=== PATIENT | male | born 1955 | race Caucasian/White ===

== ENCOUNTER 2018-05-25 17:28 | Emergency (ER) | payer OTHER ==
[2018-05-25] MEDS: IBUPROFEN 800 MG TAB PO (18:24)
== END 2018-05-25 20:00 | disposition home or self-care (01) ==
LOC: E/R 17:28
DX: S43.101A Unspecified dislocation of right acromioclavicular joint, initial encounter (principal); E11.9 Type 2 diabetes mellitus without complications; W18.39XA Other fall on same level, initial encounter; Y92.9 Unspecified place or not applicable
CPT/HCPCS: 29105; 73030-RT; 99283-25

== ENCOUNTER 2018-07-03 04:09 | Inpatient (IN) | payer OTHER ==
[2018-07-03 05:43] LABS: ADD MAN DIFF? NO
[2018-07-03 05:48] LABS: ADD UMIC NO; UR ASCORBIC ACID NEGATIVE (NEGATIVE); UR BILIRUBIN (Dip) NEGATIVE (NEGATIVE); UR BLOOD (Dip) NEGATIVE (NEGATIVE); UR CLARITY CLEAR (CLEAR); UR COLOR YELLOW (YELLOW); UR GLUCOSE (Dip) NEGATIVE (NEGATIVE); UR KETONES (Dip) NEGATIVE (NEGATIVE); UR LEUKOCYTE ESTERASE (Dip) NEGATIVE Leu/ul (NEGATIVE); UR NITRITE (Dip) NEGATIVE (NEGATIVE); UR SPECIFIC GRAVITY (Dip) 1.024 (1.003-1.030); UR TOTAL PROTEIN (Dip) NEGATIVE (NEGATIVE); UR UROBILINOGEN (Dip) NEGATIVE (NEGATIVE)
[2018-07-03 05:49] LABS: BASOPHILS % 0.7 % (0.0-2.0); EOSINOPHILS % 0.5 % (0.0-7.0); HEMOGLOBIN 13.7 g/dl (14.0-18.0); LYMPHOCYTES % 17.7 % (15.0-51.0); MEAN CORPUSCULAR HEMOGLOBIN 27.6 pg (29.0-33.0); MEAN CORPUSCULAR HGB CONC 32.6 g/dl (32.0-37.0); MEAN CORPUSCULAR VOLUME 84.7 fl (82.0-101.0); MEAN PLATELET VOLUME 10.3 fl (7.4-10.4); MONOCYTE # 0.3 10^3/ul (0.3-0.9); MONOCYTES % 5.3 % (0.0-11.0); NEUTROPHIL # 4.3 10^3/ul (1.6-7.5); NEUTROPHILS % 75.1 % (39.0-77.0); PLATELET COUNT 214 10^3/UL (140-415); RED BLOOD COUNT 4.96 10^6/ul (4.70-6.10); RED CELL DISTRIBUTION WIDTH 13.8 % (11.5-14.5)
[2018-07-03 05:49] LABS: WHITE BLOOD COUNT 5.7 10^3/ul (4.8-10.8)
[2018-07-03 06:11] LABS: ALANINE AMINOTRANSFERASE 40 IU/L (13-69); ALBUMIN 4.3 g/dl (3.3-4.9); ALBUMIN/GLOBULIN RATIO 1.34; ALKALINE PHOSPHATASE 54 IU/L (42-121); ANION GAP 12 (5-13); ASPARTATE AMINO TRANSFERASE 25 IU/L (15-46); BILIRUBIN,INDIRECT 0.2 mg/dl (0-1.1); BILIRUBIN,TOTAL 0.2 mg/dl (0.2-1.3); BLOOD UREA NITROGEN 16 mg/dl (7-20); CALCIUM 9.3 mg/dl (8.4-10.2); CARBON DIOXIDE 27 mmol/L (21-31); CHLORIDE 100 mmol/L (97-110); CREATININE 0.96 mg/dl (0.61-1.24); Estimated GFR > 60 mL/min (>60); GLUCOSE 140 mg/dl (70-220); LIPASE 94 U/L (23-300); POTASSIUM 3.7 mmol/L (3.5-5.1); SODIUM 139 mmol/L (135-144); TOTAL PROTEIN 7.5 g/dl (6.1-8.1)
[2018-07-03] MEDS: LIDOCAINE/MYLANTA 40 ML BTL PO (07:05)
[2018-07-03] MEDS: SOD CHLORIDE 0.9% 1,000 ML IV (07:06)
[2018-07-03] MEDS: ONDANSETRON 4 MG INJ IV ×2 (07:06→13:27)
[2018-07-03] MEDS: FAMOTIDINE 20 MG INJ IV (07:06)
[2018-07-03] MEDS: morphine 4 MG/ML VIAL IV (08:47)
[2018-07-03] MEDS: PIPER-TAZO 3.375 GM IV (PMX) 100 ML IVPB ×3 (08:47→23:03)
[2018-07-03] MEDS ORDERED: ACETAMINOPHEN 325 MG TAB PO (09:30)
[2018-07-03] MEDS ORDERED: NACL 0.9% 3 ML SYG IV (10:30)
[2018-07-03] MEDS ORDERED: ONDANSETRON 4 MG INJ IV ×3 (10:30→22:00)
[2018-07-03] MEDS: DEXTROSE 5%-0.45% NACL 1,000 ML IV (10:37)
[2018-07-03] MEDS: morphine 2 MG INJ IV ×2 (13:27→16:51)
[2018-07-03] MEDS ORDERED: LIDOCAINE 2% (SDV) 5 ML INJ (20:00)
[2018-07-03] MEDS ORDERED: DESFLURANE 15 MIN (20:00)
[2018-07-03] MEDS ORDERED: FENTAnyl 50 MCG/ML VIAL (20:17)
[2018-07-03] MEDS ORDERED: ROCURONIUM 50 MG INJ (20:17)
[2018-07-03] MEDS ORDERED: PROPOFOL 20 ML (20:17)
[2018-07-03] MEDS ORDERED: CEFAZOLIN 1 GM INJ (20:17)
[2018-07-03] MEDS ORDERED: NEOSTIGMINE 3 MG/3 ML SYRINGE (20:17)
[2018-07-03] MEDS ORDERED: GLYCOPYRROLATE 0.4 MG INJ (20:17)
[2018-07-03] MEDS ORDERED: DEXAMETHASONE 4 MG/ML 5 ML INJ (20:17)
[2018-07-03] MEDS ORDERED: ONDANSETRON 4 MG INJ (20:17)
[2018-07-03] MEDS ORDERED: MIDAZOLAM 1 MG/ML 2 ML INJ (20:17)
[2018-07-03] MEDS ORDERED: hydrALAzine 20 MG INJ IV (20:30)
[2018-07-03] MEDS ORDERED: MIDAZOLAM 1 MG/ML 2 ML INJ IV (20:30)
[2018-07-03] MEDS ORDERED: OXYCODONE/ACETAMINOPHEN (5/325) TAB PO ×2 (20:30)
[2018-07-03] MEDS ORDERED: HYDROmorphONE 1 MG/5 ML IV SYRINGE IV ×2 (20:30)
[2018-07-03] MEDS ORDERED: LABETALOL HCL 20MG INJ IV (20:30)
[2018-07-03] MEDS ORDERED: FENTAnyl 50 MCG/ML VIAL IV ×3 (20:30)
[2018-07-03] MEDS ORDERED: DIPHENHYDRAMINE 50 MG INJ IV (20:30)
[2018-07-03] MEDS ORDERED: IPRATROPIUM (NEB) 0.5 MG/2.5 ML AMP HHN (20:30)
[2018-07-03] MEDS ORDERED: EPHEDrine SULFATE 50 MG/5 ML SYG IV (20:30)
[2018-07-03] MEDS ORDERED: TRIMETHOBENZAMIDE 100 MG/ML VIAL IM (20:30)
[2018-07-03] MEDS ORDERED: MEPERIDINE 25 MG INJ IV (20:30)
[2018-07-03] MEDS ORDERED: ALBUTEROL 0.083% (NEB) 2.5 MG/3 ML AMP HHN (20:30)
[2018-07-03] MEDS: BUPIVACAINE 0.5%/EPI (SDV) 30 ML INJ (20:38)
[2018-07-03] MEDS ORDERED: SUGAMMADEX SODIUM 200 MG/2 ML VIAL IV (21:17)
[2018-07-03] MEDS ORDERED: METOCLOPRAMIDE 10 MG INJ IV (22:00)
[2018-07-03] MEDS ORDERED: HYDROmorphONE 0.5 MG/0.5 ML SYG IV (22:00)
[2018-07-03] MEDS: HYDROmorphONE 1 MG/5 ML IV SYRINGE IV (22:36)
[2018-07-03] MEDS: D5W-0.45 NACL + KCL 20 MEQ 1,000 ML IV (23:05)
[2018-07-04] MEDS: HYDROCODONE/APAP (5/325) TAB PO (06:07)
[2018-07-04] MEDS: PIPER-TAZO 3.375 GM IV (PMX) 100 ML IVPB (06:08)
[2018-07-04] MEDS: ENOXAPARIN 40 MG/0.4 ML SYG SC (06:18)
[2018-07-04] MEDS: D5W-0.45 NACL + KCL 20 MEQ 1,000 ML IV (07:33)
[2018-07-04] MEDS ORDERED: LORAZEPAM 2 MG INJ IV (08:00)
[2018-07-04] MEDS ORDERED: INFLUENZA VIRUS VACCINE 0.5 ML (DISPENSING) IM* (09:00)
== END 2018-07-04 11:30 | disposition home or self-care (01) | DRG 343 ==
LOC: E/R 04:09 → 2NE 09:13
PROC: 0DTJ4ZZ Resection of Appendix, Percutaneous Endoscopic Approach (ICD-10-PCS; principal; 2018-07-03 20:09)
DX: K35.80 Unspecified acute appendicitis (principal); E11.9 Type 2 diabetes mellitus without complications; E78.5 Hyperlipidemia, unspecified
CPT/HCPCS: 36415; 74176; 76705; 80053; 81003; 83690; 85025; 87040; 88304; 90686; 96374; 96375; 99285-25